=== PATIENT | female | born 1985 | race Caucasian/White ===

== ENCOUNTER → 2019-05-13 | Outpatient (CLI) | payer OTHER | END | disposition home or self-care (01) | LOC: RAD 13:00 | DX: M17.11 Unilateral primary osteoarthritis, right knee (principal); M25.461 Effusion, right knee ==

== ENCOUNTER 2019-12-31 20:30 | Emergency (ER) | payer OTHER, BC ==
[~2019-12-31] VITALS: Ht 157.4 cm; Wt 199.6 kg
[2019-12-31 21:52] LABS: BASO % 0.3 % (0.0-1.0); EOS # 0.3 10*3/uL (0.0-0.4); EOS % 2.1 % (1.0-4.0); HEMATOCRIT 39.3 % (37.0-47.0); LYMPH % 22.4 % (27.0-41.0); MEAN CELL VOLUME 86.9 fl (81.0-99.0); MEAN CORPUSCULAR HGB 27.4 pg (27.0-31.0); MEAN CORPUSCULAR HGB CONC 31.6 g/dl (33.0-37.0); MEAN PLATELET VOLUME 11.8 fl (9.6-12.3); MONO # 0.7 10*3/uL (0.1-1.0); MONO % 5.4 % (3.0-9.0); NEUT # 9.3 10*3/uL (2.3-7.9); NEUT % 69.4 % (47.0-73.0); PLATELET COUNT AUTOMATED 309 10*3/uL (130-400); RED BLOOD COUNT 4.52 10*6/uL (4.10-5.10); RED CELL DISTRI WIDTH 14.4 % (0-14.5); WHITE BLOOD COUNT 13.4 10*3/uL (4.8-10.8)
[2019-12-31 22:05] LABS: BUN 17 mg/dl (7-24); CHLORIDE 105 mmol/L (98-107); CREATININE 0.92 mg/dL (0.55-1.02); POTASSIUM 3.7 mmol/L (3.5-5.1); SODIUM 136 mmol/L (136-145)
[2019-12-31] MEDS ORDERED: ANUSOL-HC25 MG R (23:44)
== END 2019-12-31 23:55 | disposition home or self-care (01) ==
LOC: ED 20:30
PROVIDERS: Emergency Medicine Emergency Medical Services
DX: K64.8 Other hemorrhoids (principal); M19.90 Unspecified osteoarthritis, unspecified site

== ENCOUNTER → 2021-11-13 | Outpatient (CLI) | payer BC ==
[~2021-11-13] MED LIST: ANUSOL-HC25 MG R
[2021-11-13 10:46] LABS: THYROID STIM HORMONE (HS) 3.47 uIU/ml (0.358-4.75)
== END | disposition home or self-care (01) ==
LOC: LAB 09:51
PROVIDERS: ATTEND Internal Medicine
DX: R00.0 Tachycardia, unspecified (principal); R06.02 Shortness of breath; R00.2 Palpitations; I10 Essential (primary) hypertension; Z68.43 Body mass index [BMI] 50.0-59.9, adult

== ENCOUNTER → 2021-11-29 | Outpatient (CLI) | payer BC | END | disposition home or self-care (01) | LOC: US 08:30 | PROVIDERS: ATTEND Internal Medicine | DX: K76.0 Fatty (change of) liver, not elsewhere classified (principal); K83.8 Other specified diseases of biliary tract ==

== ENCOUNTER → 2022-01-01 | Outpatient (CLI) | payer BC | END | disposition home or self-care (01) | LOC: CARD 11:38 | PROVIDERS: ATTEND Internal Medicine | DX: R06.02 Shortness of breath (principal) ==

== ENCOUNTER → 2022-02-05 | Outpatient (CLI) | payer BC ==
[2022-02-05 10:05] LABS: BASO # 0.1 10*3/uL (0.0-0.1); BASO % 0.5 % (0.0-1.0); EOS # 0.3 10*3/uL (0.0-0.4); EOS % 2.3 % (1.0-4.0); HEMATOCRIT 46.4 % (37.0-47.0); LYMPH # 2.5 10*3/uL (1.3-4.4); MEAN CELL VOLUME 86.7 fl (81.0-99.0); MEAN CORPUSCULAR HGB 27.1 pg (27.0-31.0); MEAN CORPUSCULAR HGB CONC 31.3 g/dl (33.0-37.0); MEAN PLATELET VOLUME 11.7 fl (9.6-12.3); MONO # 0.6 10*3/uL (0.1-1.0); MONO % 5.1 % (3.0-9.0); NEUT # 7.4 10*3/uL (2.3-7.9); NEUT % 68.6 % (47.0-73.0); PLATELET COUNT AUTOMATED 315 10*3/uL (130-400); RED BLOOD COUNT 5.35 10*6/uL (4.10-5.10); RED CELL DISTRI WIDTH 15.3 % (0-14.5); WHITE BLOOD COUNT 10.8 10*3/uL (4.8-10.8)
[2022-02-05 10:38] LABS: BUN 22 mg/dl (7-24); CHLORIDE 104 mmol/L (98-107); POTASSIUM 3.7 mmol/L (3.5-5.1); SODIUM 139 mmol/L (136-145)
[2022-02-05 10:41] LABS: ALKALINE PHOSPHATASE 76 U/L (45-117); CHOLESTEROL 163 mg/dL (<200); CREATININE 0.82 mg/dL (0.55-1.02); LDL CHOLESTEROL 99 mg/dL (9-159); SGOT/AST 28 IU/L (3-35); SGPT/ALT 36 U/L (12-78); TOTAL PROTEIN 8.1 gm/dL (6.4-8.2); TRIGLYCERIDES 153 mg/dl (<150)
== END | disposition home or self-care (01) ==
LOC: LAB 09:40
PROVIDERS: ATTEND Internal Medicine
DX: I89.0 Lymphedema, not elsewhere classified (principal); Z68.45 Body mass index [BMI] 70 or greater, adult

== ENCOUNTER → 2022-02-27 | Outpatient (CLI) | payer BC | END | disposition home or self-care (01) | LOC: LAB 07:16 | PROVIDERS: ATTEND Clinical Nurse Specialist Adult Health | DX: E66.01 Morbid (severe) obesity due to excess calories (principal) ==

== ENCOUNTER 2022-08-14 18:54 | Emergency (ER) | payer BC ==
[~2022-08-14] VITALS: Ht 157.4 cm; Wt 138.3 kg
[2022-08-14] MEDS ORDERED: OMEPRAZOLE40 MG PO (19:19)
[2022-08-14] MEDS ORDERED: URSODIOL300 M1 PO (19:19)
[2022-08-14 20:22] LABS: BASO % 0.3 % (0.0-1.0); EOS # 0.2 10*3/uL (0.0-0.4); EOS % 2.7 % (1.0-4.0); HEMATOCRIT 42.1 % (37.0-47.0); LYMPH # 2.5 10*3/uL (1.3-4.4); LYMPH % 28.9 % (27.0-41.0); MEAN CELL VOLUME 87.7 fl (81.0-99.0); MEAN CORPUSCULAR HGB 27.3 pg (27.0-31.0); MEAN CORPUSCULAR HGB CONC 31.1 g/dl (33.0-37.0); MEAN PLATELET VOLUME 12.1 fl (9.6-12.3); MONO # 0.5 10*3/uL (0.1-1.0); MONO % 5.9 % (3.0-9.0); NEUT # 5.4 10*3/uL (2.3-7.9); PLATELET COUNT AUTOMATED 256 10*3/uL (130-400); RED CELL DISTRI WIDTH 15.1 % (0-14.5); WHITE BLOOD COUNT 8.6 10*3/uL (4.8-10.8)
[2022-08-14 20:40] LABS: ALKALINE PHOSPHATASE 62 U/L (46-116); BUN 16 mg/dl (9-23); CHLORIDE 103 mmol/L (98-107); POTASSIUM 3.8 mmol/L (3.4-5.1); SGPT/ALT 27 U/L (10-49); TOTAL PROTEIN 7.2 gm/dL (6.0-8.0)
[2022-08-14] MEDS ORDERED: CEPHALEXIN500 M1 PO (21:07)
== END 2022-08-14 21:18 | disposition home or self-care (01) ==
LOC: ED 18:54
PROVIDERS: Physician Assistant
DX: L03.115 Cellulitis of right lower limb (principal); Z88.1 Allergy status to other antibiotic agents; Z88.6 Allergy status to analgesic agent; Z79.899 Other long term (current) drug therapy

== ENCOUNTER → 2023-04-17 | Outpatient (CLI) | payer BC ==
[~2023-04-17] MED LIST changes: +CEPHALEXIN500 M1 PO; +OMEPRAZOLE40 MG PO; +URSODIOL300 M1 PO
== END | disposition home or self-care (01) ==
LOC: RAD 15:58
PROVIDERS: ATTEND Internal Medicine
DX: M17.0 Bilateral primary osteoarthritis of knee (principal); M25.761 Osteophyte, right knee; M25.762 Osteophyte, left knee; M25.862 Other specified joint disorders, left knee; M25.861 Other specified joint disorders, right knee

== ENCOUNTER 2024-08-10 05:29 | Emergency (ER) | payer BC ==
[~2024-08-10] VITALS: Ht 157.4 cm; Wt 131.5 kg
[2024-08-10] MEDS ORDERED: Tdap Vaccine 0.5 ML SYR (Adult Vaccine) IM ONE (07:25)
[2024-08-10] MEDS ORDERED: Lidocaine Hydrochloride 30 ML VIAL SC ONE (07:25)
[2024-08-10] MEDS ORDERED: Bacitracin Zinc 14 GM TUBE T ONE (07:25)
== END 2024-08-10 07:57 | disposition home or self-care (01) ==
LOC: ED 05:29
DX: S01.81XA Laceration without foreign body of other part of head, initial encounter (principal); R55 Syncope and collapse; E66.9 Obesity, unspecified; Z88.1 Allergy status to other antibiotic agents; Z88.8 Allergy status to other drugs, medicaments and biological substances; Z79.2 Long term (current) use of antibiotics; Z79.899 Other long term (current) drug therapy; W22.8XXA Striking against or struck by other objects, initial encounter; Y93.89 Activity, other specified; Y92.89 Other specified places as the place of occurrence of the external cause; Y99.8 Other external cause status